=== PATIENT | male | born 1960 | race Caucasian/White ===

== ENCOUNTER → 2017-01-08 | Outpatient (CLI) | payer BC ==
--- NOTE | 2017-01-09 11:50 | RAD ---
Bilateral hands, 6 views, 01/08/2017: History: Polyarthralgias There is mild patchy bony demineralization. No fracture or destructive bony lesion is seen. There are only minimal degenerative changes at scattered interphalangeal joints. No bone erosions are evident. The soft tissues are unremarkable. IMPRESSION: 1. Minimal degenerative change at scattered interphalangeal joints. 2. No acute abnormality is detected.
== END | disposition home or self-care (01) ==
LOC: DXRADRC 13:31
PROVIDERS: ATTEND Internal Medicine Rheumatology
DX: M25.50 Pain in unspecified joint (principal)
CPT/HCPCS: 73130

== ENCOUNTER 2017-02-24 22:52 | Inpatient (IN) | payer BC ==
[~2017-02-24] VITALS: Ht 180.3 cm; Wt 91.7 kg
[2017-02-24] MEDS ORDERED: IV NORMAL SALINE 1,000ML 1,000 ML IV ONE (23:15)
--- NOTE | 2017-02-24 23:21 | PHYS DOC ---
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 Patient admits to having symptoms for greater than a year recently seen by rheumatology and started on Plaquenil and prednisone daily as well as tramadol to treat his symptoms.. Over the last 3-4 days his symptoms gotten progressively worse were now he has increasing pain in his upper extremities described as aching and throbbing worse with movements and position. The aching and throbbing pain is not improved by his medications and that he believes there worsened. He denies any fevers, chills, trauma, travel outside the country, rashes, changes in medications. He denies stopping his prednisone has been tapering off of it. He denies any sick contacts, or focal neurologic deficits. He also denies any chest pain, shortness of breath, nausea, diarrhea, abdominal pain, vomiting, or URI symptoms. Review of Systems Review of Systems Constitutional: Denies fever or chills [] Eyes: Denies change in visual acuity, redness, or eye pain [] HENT: Denies nasal congestion or sore throat [] Respiratory: Denies cough or shortness of breath [] Cardiovascular: No additional information not addressed in HPI [] GI: Denies abdominal pain, nausea, vomiting, bloody stools or diarrhea [] : Denies dysuria or hematuria [] Musculoskeletal: Denies back pain or joint pain [] Integument: Is of localized swelling to each hand bilaterally Neurologic: Planes of generalized weakness and muscle aches. Endocrine: Denies polyuria or polydipsia [] Current Medications Current Medications Current Medications Medications (Trade) Dose Ordered Sig/Tete Start Time Stop Time Status Last Admin Dose Admin Hydromorphone HCl (Dilaudid) 1 mg 1X ONCE 02/24/17 23:15 02/24/17 23:16 UNV Ketorolac Tromethamine (Toradol) 30 mg 1X ONCE 02/24/17 23:15 02/24/17 23:16 UNV Sodium Chloride 1,000 ml @ 1,000 mls/hr 1X ONCE 02/24/17 23:15 02/25/17 00:14 UNV Physical Exam Physical Exam Vital signs demonstrated hypertension, tachycardia without tachypnea or hyperventilation. Sats normal temperature normal Constitutional: Well developed, well nourished, patient obviously uncomfortable but nontoxic HENT: Normocephalic, atraumatic, bilateral external ears normal, oropharynx is dry, no oral exudates, nose normal. [] Eyes: PERRLA, EOMI, conjunctiva normal, no discharge. [] Neck: Normal range of motion, no tenderness, supple, no stridor. [] Cardiovascular: Tachycardia noted Lungs & Thorax: Bilateral breath sounds clear to auscultation [] Abdomen: Bowel sounds normal, soft, no tenderness, no masses, no pulsatile masses. [] Skin: Warm, dry, no erythema, no rash. Noted localized swelling to the dorsum and volar surfaces of both sides of the hand. There is no Janeway's lesions are/ nodes no rashor joint swelling Back: No tenderness, no CVA tenderness. [] Extremities: No tenderness, no cyanosis, no clubbing, is reduced range of motion is reduced secondary to pain, patient does demonstrate some edema in the lower extremity's bilaterally Neurologic: Alert and oriented X 3, normal motor function, normal sensory function, no focal deficits noted. [] Psychologic: Affect normal, judgement normal, mood normal. [] Current Patient Data Vital Signs Vital signs noted mildly tachycardic at 104 hypertensive at 151/98 patient respiratory within normal limits temperatures in the normal limits and sats the normal limits. Lab Results Laboratory Tests Test 02/24/17 23:25 White Blood Count 11.0 x10^3/uL (4.0-11.0) Red Blood Count 4.59 x10^6/uL (4.30-5.70) Hemoglobin 14.4 g/dL (13.0-17.5) Hematocrit 41.4 % (39.0-53.0) Mean Corpuscular Volume 90 fL (79-100) Mean Corpuscular Hemoglobin 31 pg (25-35) Mean Corpuscular Hemoglobin Concent 35 g/dL (31-37) Red Cell Distribution Width 13.5 % (11.5-14.5) Platelet Count 344 x10^3/uL (140-400) Neutrophils (%) (Auto) 80 % (31-73) H Lymphocytes (%) (Auto) 10 % (24-48) L Monocytes (%) (Auto) 9 % (0-9) Eosinophils (%) (Auto) 1 % (0-3) Basophils (%) (Auto) 1 % (0-3) Neutrophils # (Auto) 8.8 x10^3uL (1.8-7.7) H Lymphocytes # (Auto) 1.1 x10^3/uL (1.0-4.8) Monocytes # (Auto) 0.9 x10^3/uL (0.0-1.1) Eosinophils # (Auto) 0.1 x10^3/uL (0.0-0.7) Basophils # (Auto) 0.1 x10^3/uL (0.0-0.2) Erythrocyte Sedimentation Rate Pending Sodium Level 136 mmol/L (136-145) Potassium Level 3.9 mmol/L (3.5-5.1) Chloride Level 100 mmol/L (98-107) Carbon Dioxide Level 28 mmol/L (21-32) Anion Gap 8 (6-14) Blood Urea Nitrogen 15 mg/dL (8-26) Creatinine 1.0 mg/dL (0.7-1.3) Estimated GFR (Cockcroft-Gault) 77.6 BUN/Creatinine Ratio 15 (6-20) Glucose Level 150 mg/dL (70-99) H Calcium Level 9.1 mg/dL (8.5-10.1) Total Bilirubin 0.4 mg/dL (0.2-1.0) Aspartate Amino Transferase (AST) 10 U/L (15-37) L Alanine Aminotransferase (ALT) 16 U/L (16-63) Alkaline Phosphatase 91 U/L (46-116) Creatine Kinase 20 U/L (39-308) L C-Reactive Protein 143.7 mg/L (0-3.3) H Total Protein 8.3 g/dL (6.4-8.2) H Albumin 3.0 g/dL (3.4-5.0) L Albumin/Globulin Ratio 0.6 (1.0-1.7) L EKG EKG [] Radiology/Procedures Radiology/Procedures [] Course & Med Decision Making Course & Med Decision Making Pertinent Labs and Imaging studies reviewed. (See chart for details) [] My initial concern upon presentation is the patient may be suffering from side effects based on use of Plaquenil and prednisone. He does demonstrates some evidence of adrenal insufficiency based on history although his tapering dose is only 10 mg which is unlikely precipitate Santiago's disease or adrenal crisis. The Plaquenil could be also causing his symptoms as it can according to his labile cause myopathy neuropathy and pain. I will continue evaluation of this patient to ensure that there is no evidence of rhabdomyolysis significant dehydration or renal insufficiency causing fluid retention causing localized pain. This does not present as septic joints bilaterally there is no history of sexually transmitted diseases or rashes with these joint pains. Patient's pain mildly improved with IV fluids and Dilaudid and Toradol. Patient is still mildly anxious elevated sedimentation rate and CRP and mildly elevated white blood cell count are indicative of inflammatory process. At this point still don't feel compelled to Any particular peripheral joint given that I do not believe this is an infectious process. Patient unfortunately still a great deal of discomfort. He's been offered a second medication dose and we admitted to the hospital for continued evaluation. Although admitting physician Dr. Devin HEMPHILL at approximately 12:[address] Devin HEMPHILL return phone call at 12:40 am agrees admission will see patient in a.m. Bettie Disclaimer Bettie Disclaimer This chart was dictated in whole or in part using Voice Recognition software in a busy, high-work load, and often noisy Emergency Department environment. It may contain unintended and wholly unrecognized errors or omissions. Departure Departure: Impression: Primary Impression: Intractable pain Additional Impression: Arthritis Disposition: ADMITTED INPATIENT Condition: GUARDED Referrals: TYLER MELGAR (PCP) Problem Qualifiers MAICO CHILDS MD February 24, 2017 23:21
[2017-02-24 23:42] LABS: BASO # 0.1 x10^3/uL (0.0-0.2); BASO % 1 % (0-3); EOS # 0.1 x10^3/uL (0.0-0.7); EOS % 1 % (0-3); HEMATOCRIT 41.4 % (39.0-53.0); HEMOGLOBIN 14.4 g/dL (13.0-17.5); LYMPH # 1.1 x10^3/uL (1.0-4.8); LYMPH % 10 % (24-48); MEAN CORPUSCULAR HEMOGLOBIN 31 pg (25-35); MEAN CORPUSCULAR HGB CONC 35 g/dL (31-37); MEAN CORPUSCULAR VOLUME 90 fL (79-100); MONO # 0.9 x10^3/uL (0.0-1.1); MONO % 9 % (0-9); NEUT # 8.8 x10^3uL (1.8-7.7); NEUT % 80 % (31-73); PLATELET COUNT 344 x10^3/uL (140-400); RED BLOOD COUNT 4.59 x10^6/uL (4.30-5.70); RED CELL DISTRIBUTION WIDTH 13.5 % (11.5-14.5)
[2017-02-24] MEDS ORDERED: KETOROLAC 30 MG/ML VIAL. IV ONE (23:45)
[2017-02-24] MEDS ORDERED: HYDROmorphone PF 1 MG/ML DISP.SYRIN IV ONE (23:45)
[2017-02-24 23:49] LABS: ALBUMIN/GLOBULIN RATIO 0.6 (1.0-1.7); CALCIUM 9.1 mg/dL (8.5-10.1); GFR 77.6; POTASSIUM 3.9 mmol/L (3.5-5.1); TOTAL BILIRUBIN 0.4 mg/dL (0.2-1.0); TOTAL PROTEIN 8.3 g/dL (6.4-8.2)
[2017-02-25] MEDS ORDERED: ONDANSETRON PF 4 MG/2 ML VIAL. IV PRN (00:30)
[2017-02-25] MEDS ORDERED: ACETAMINOPHEN 325 MG TABLET PO PRN (00:30)
[2017-02-25 00:38] LABS: SEDIMENTATION RATE 107 (0-15)
[2017-02-25] MEDS ORDERED: LORazepam 2 MG/ML VIAL IV ONE (01:00)
[2017-02-25] MEDS ORDERED: HYDROmorphone PF 1 MG/ML DISP.SYRIN IV ONE (01:00)
[2017-02-25 01:35] VITALS: BP 151/91
[2017-02-25 01:44] VITALS: BP 128/74
--- NOTE | 2017-02-25 02:09 | ACF ---
Admission Criteria Forms MUSCULOSKELETAL DISEASE [facility] Clinical Indications for Admission to Inpatient Care (Place 'X' for any and all applicable criteria): Hospital admission is needed for appropriate care of the patient because of 1 or more of the following: [ ]I. Fracture, dislocation, or other musculoskeletal injury requiring inpatient care(medical) as indicated by 1 or more of the following(4)(5)(6)(7) [ ]a) Vertebral fracture requiring observation for instability or neurologic compromise (8) [ ]b) Compartment syndrome (proven or cannot be ruled out during observation level of care) (9) [ ]c) Limb-threatening injury [ ]d) Major injury requiring inpatient stabilization such as traction initiation or external fixation before internal fixation or closure of complex or open fracture [ ]e) Major injury requiring inpatient treatment after emergency or observation level care (as appropriate) [ ]f) Severe pain requiring acute inpatient management [ ]g) Injury with suspicion of abuse or neglect (eg., child, dependent elderly) [ ]II. Newly diagnosed or suspected bone, joint, or orthopedic device infection (e.g., osteomyelitis, septic arthritis) needing 1 or more of the following(1)(2)(3) [ ]a) IV antibiotics that cannot be initiated in other than inpatient setting (e.g., patient too unstable or home infusion not available) [ ]b) Device removal or replacement [ ]c) Bone or soft tissue debridement [ ]d) Joint drainage (drain placement or repetitive aspirations) [ ]III. Severe rheumatologic disease (e.g., systemic lupus erythematosus, rheumatoid arthritis) with complications or comorbidities (Also use Optimal Recovery Care Criteria or General Recovery Criteria as appropriate on the basis of predominant condition), including 1 or more of the following( 10)(11)(12)(13) [ ]a) Severe infection (e.g., CAMPUS ADMINISTRATIVE ASSISTANT infection, sepsis) (14) [ ]b) Respiratory complications, including 1 or more of the following : [ ]i) Pleural effusion with respiratory compromise [ ]ii) Pulmonary hypertension with congestive failure [ ]iii) Respiratory failure [ ]iv) Pulmonary hemorrhage (15) [ ]c) Hematologic disease, including 1 or more of the following: [ ]i) Coagulopathy with bleeding [ ]ii) Thrombosis with hypercoagulable state [ ]iii) Thrombotic thrombocytopenic purpura [ ]d) Cerebritis with seizures, psychosis, or other severe abnormalities [ ]e) Vertebral destruction with monitoring needed for cervical myelopathy& possible respiratory compromise [ ]f) Exacerbation that requires inpatient treatment (e.g., intravenous immunosuppression) (16) [ ]g) Acute renal failure [ ]h) Cerebritis with seizures, psychosis, Altered mental status, or other neurologic abnormalities [ ]i) Pericardial effusion with tamponade [ ]j) Vertebral destruction, with monitoring needed for cervical myelopathy and possible respiratory compromise [ ]IV. Severe vasculitis with complications or comorbidities (Also use Optimal Recovery Care Criteria General Recovery Criteria as appropriate on the basis of predominant condition), including 1 or more of the following(11)(12)(17)(18)(19)(20) [ ]a) Exacerbation that requires inpatient treatment (e.g., intravenous immunosuppression) (19)(21) [ ]b) Pulmonary hemorrhage (15) [ ]c) CAMPUS ADMINISTRATIVE ASSISTANT vasculitis with seizures, psychosis, Altered mental status that is severe or persistent, or other severe abnormalities (22) [ ]d) Cerebral infarction [ ]e) Gastrointestinal ischemia [ ]f) Gangrene or threatened amputation [ ]g) Renal failure (16) [ ]h) Other significant complications of vasculitis ( eg., tissue or organ ischemia, organ dysfunction ) [ ]V. Severe myopathy as indicated by 1 or more of the following (28)(29) [ ]a) New onset of airway compromise or inability to swallow [ ]b) Respiratory deterioration with observation needed for impending respiratory failure [ ]c) Exacerbation that requires inpatient treatment (e.g., intravenous immunosuppression) [ ]. Severe crystal gout (arthropathy) indicated by 1 or more of the following (23)(24) [ ]a) Severe pain requiring acute inpatient management [ ]b) Exacerbation that requires inpatient treatment (e.g., intravenous treatment) [ ]VII.Rhabdomyolysis and 1 or more of the following (25)(26)(27) [ ]a) Acute renal failure [ ]b) Need for intravenous hydration after emergency or observation level care (as appropriate) [ ]c) Inability to maintain oral hydration [ ]d) Change in mental status [ ]e) Electrolyte abnormality that remains after emergency or observation level care (as appropriate) [ ]VIII Post amputation complication, as indicated by ANY ONE of the following [ ]a) Infection [ ]b) Dehiscence [ ]c) Myodesis failure [X]IX. Severe pain requiring acute inpatient management due to musculoskeletal condition [ ]X. Musculoskeletal Disease and ALL of the following: [ ]a) Symptom or finding for which emergency and observation care have failed or are not considered appropriate (Use General Criteria: Observation Care as appropriate) [ ]b) Presence of ANY ONE of the following [ ]i) A General Admission Criteria [ ]ii) A Pediatric General Admission Criteria The original [facility] [employer] content created by [facility] has been revised. The portions of the content which have been revised are identified through the use of italic text or in bold, and [facility] has neither reviewed nor approved the modified material. All other unmodified content is copyright [facility]. Please see references footnoted in the original [facility] edition 2016 Admission Criteria Met?: Yes SHANNAN RING February 25, 2017 02:09
[2017-02-25] MEDS: fentaNYL PF 100 MCG/2 ML VIAL IV PRN ×5 (07:30→21:19)
[2017-02-25 07:40] VITALS: BP 130/70
[2017-02-25] MEDS ORDERED: METF500T4 PO (08:09)
[2017-02-25] MEDS ORDERED: CITA40TA12 PO (08:10)
[2017-02-25] MEDS ORDERED: OMEP40CA5 PO (08:10)
[2017-02-25] MEDS ORDERED: ATOR20TA58 PO (08:10)
[2017-02-25] MEDS ORDERED: LEVO50TA5 PO (08:11)
[2017-02-25] MEDS ORDERED: HYDR200T PO (08:11)
[2017-02-25] MEDS ORDERED: PRED-220 PO (08:12)
[2017-02-25] MEDS ORDERED: predniSONE 10 MG TABLET PO SCH (09:00)
[2017-02-25] MEDS ORDERED: LEVOTHYROXINE 50 MCG TABLET PO SCH (09:30)
[2017-02-25] MEDS: HYDROXYCHLOROQUINE 200 MG TABLET PO SCH ×2 (09:52→21:19)
[2017-02-25] MEDS: metFORMIN 500 MG TABLET PO SCH ×2 (09:52→21:19)
[2017-02-25 11:11] VITALS: BP 126/86
[2017-02-25] MEDS: LIDOCAINE (700MG/PATCH) PATCH. TD SCH (14:20)
[2017-02-25] MEDS ORDERED: methylPREDNISolone SOD SUCC PF 40 MG/ML VIAL. IV ONE (14:30)
[2017-02-25] MEDS: ENOXAPARIN 40 MG/0.4 ML DISP.SYRIN. SQ SCH (14:43)
[2017-02-25] MEDS: NAPROXEN 500 MG TABLET PO SCH ×2 (14:44→21:19)
[2017-02-25 15:02] VITALS: BP 140/96
[2017-02-25] MEDS ORDERED: NAPR500T PO (15:48)
--- NOTE | 2017-02-25 19:56 | HP ---
ADMIT DATE: 02/25/2017 HISTORY OF PRESENT ILLNESS: The patient is a 56-year-old male patient who came yesterday to the Emergency Room complaining of pain and generalized aches and throbbing in his upper extremities and hands with localized swelling. He apparently had these symptoms for greater than a year, and about a year ago, he was diagnosed with gout and a few months ago, he was seen by Dr. Florence, director on air and started him on Plaquenil and prednisone daily and as well as tramadol to treat his symptoms. Initially, he was given larger dose of steroids and subsequently, has received three tapering course of steroids and most recently, he is only on 10 mg b.i.d. He is also however, over the last 3-4 days, his symptoms have gotten progressively worse and now, he has increasing pain in his upper extremities as described as aching and throbbing, worse with movement and position, aching and throbbing pain is not improved by his medication that he believes that they have worsened. He denied; however, any fever, chill, trauma, with change in medication. He denied any stopping the prednisone, it had been tapered off of it. He denied any sick contacts. No focal neurologic deficit. He also denied any chest pain, shortness of breath. PAST MEDICAL HISTORY: Significant for type 2 diabetes mellitus, hyperlipidemia, hypothyroidism, he has also obstructive sleep apnea and more recently, was diagnosed with rheumatoid arthritis. PAST SURGICAL HISTORY: Significant for right-sided residual osteomyelitis and septoplasty x 2, colonoscopy, which was screening. ALLERGIES: He has no known drug allergies. MEDICATIONS: He is currently on following medications: He is on atorvastatin, calcium 20 mg once a day, citalopram hydrobromide 40 mg once a day, hydroxychloroquine sulfate 200 mg once a day, levothyroxine sodium 50 mcg daily, metformin 500 mg twice a day, omeprazole 40 mg once a day, and prednisone 10 mg once a day. FAMILY HISTORY: He has one brother who is younger and healthy. One sister, older at 62. His father at the age of 62 because of alcoholism. His mother is still alive at the age of 87 and healthy. SOCIAL HISTORY: He is . He smokes about a pack a day. He drinks alcohol occasionally. 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 REVIEW OF SYSTEMS: The patient denied any blurring of vision, cataract, glaucoma or macular degeneration. Denied any earache, tinnitus or sensorineural deafness. Denied any nosebleeds, stuffy nose or postnasal drip. Denied any sore throat, sore tongue, toothache, hoarseness of voice or difficulty swallowing. Denied any nausea, vomiting, diarrhea or constipation. Denied any hematemesis, melena or hematochezia. Denied any dysuria, frequency or hematuria. Denied any chills, rigors or fever. Denied any chest pain, shortness of breath, orthopnea, paroxysmal nocturnal dyspnea. Denied any cough, phlegm or hemoptysis. PHYSICAL EXAMINATION: GENERAL: When I examined him this afternoon, he was resting slightly propped up in bed, in no apparent respiratory distress. No pallor, jaundice, cyanosis or thyromegaly. No jugular venous distention. No lower limb edema. VITAL SIGNS: His heart rate was 94, blood pressure was 126/86, temperature was 98.7, respiratory rate 20, and oxygen saturation was 95% on room air. HEAD, EYES, EARS, NOSE, AND THROAT: Showed normocephalic, atraumatic. NECK: Supple. HEART: Showed normal first and second heart sounds with no gallop, rub or murmur. CHEST: Clear to auscultation. No crepitation or rhonchi. ABDOMEN: Distended, soft, and nontender. No guarding or rigidity. No organomegaly. Hernial orifices intact. Bowel sounds normal. NEUROLOGIC: He was awake, alert, responding appropriately. Cranial nerves intact. EXTREMITIES: He moves extremities without difficulty, although he has pain mostly in the right shoulder and right wrist joint and the right hand more swollen than the left one. 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 LABORATORY DATA: Showed a white cell count of 11,000, hemoglobin 14.4, hematocrit 41, MCV 90, and platelet count of 344,000, with a manual differential showed 80% polymorphs, 10% lymphocytes, and 9% monocytes. His serum sodium was 136, potassium 3.9, chloride 100, bicarbonate 28, anion gap of 8, BUN 15, creatinine 1, estimated GFR was 77 mL per minute, his glucose 150. Calcium was 9.1. Total bilirubin, AST, ALT, alkaline phosphatase were normal. His CK was only 20, total protein was 8.3, albumin 3, and C-reactive protein was 143.7 mg/dL. His sedimentation rate was 107 mm per hour. ASSESSMENT AND PLAN: This is a 56-year-old male patient who came in with flareup of his rheumatoid arthritis. My plan is to give him an intravenous dose of Solu-Medrol at 40 mg and start him also on naproxen 500 mg 3 times a day with food, had also Lidoderm patch to his right shoulder and right wrist and continue with all other medication and decide on further management accordingly. I contacted Dr. Florence by phone and also texted him, at least he has not responded by the time I dictated this H and P. AGNIESZKA COWART MD DR: BAHMAN/jodee JOB#: [id number] / [id number]
[2017-02-25] MEDS: ATORVASTATIN CALCIUM 20 MG TABLET PO SCH (21:19)
[2017-02-25 21:32] VITALS: BP 138/81
[2017-02-26 00:45] VITALS: BP 140/90
[2017-02-26] MEDS: fentaNYL PF 100 MCG/2 ML VIAL IV PRN ×3 (00:57→07:29)
[2017-02-26] MEDS: LEVOTHYROXINE 50 MCG TABLET PO SCH (05:49)
[2017-02-26 05:52] VITALS: BP 120/86
[2017-02-26 06:32] LABS: BASO # 0.1 x10^3/uL (0.0-0.2); BASO % 1 % (0-3); EOS % 0 % (0-3); HEMATOCRIT 39.8 % (39.0-53.0); HEMOGLOBIN 13.9 g/dL (13.0-17.5); LYMPH # 1.4 x10^3/uL (1.0-4.8); LYMPH % 13 % (24-48); MEAN CORPUSCULAR HEMOGLOBIN 32 pg (25-35); MEAN CORPUSCULAR HGB CONC 35 g/dL (31-37); MEAN CORPUSCULAR VOLUME 91 fL (79-100); MONO # 0.8 x10^3/uL (0.0-1.1); MONO % 8 % (0-9); NEUT # 8.5 x10^3uL (1.8-7.7); NEUT % 79 % (31-73); PLATELET COUNT 371 x10^3/uL (140-400); RED CELL DISTRIBUTION WIDTH 13.7 % (11.5-14.5); WHITE BLOOD COUNT 10.8 x10^3/uL (4.0-11.0)
[2017-02-26 06:52] LABS: ALBUMIN 2.8 g/dL (3.4-5.0); ALBUMIN/GLOBULIN RATIO 0.5 (1.0-1.7); CREATININE 0.9 mg/dL (0.7-1.3); GFR 87.6; TOTAL BILIRUBIN 0.4 mg/dL (0.2-1.0)
[2017-02-26] MEDS: metFORMIN 500 MG TABLET PO SCH ×2 (07:28→21:03)
[2017-02-26] MEDS: LIDOCAINE (700MG/PATCH) PATCH. TD SCH (07:28)
[2017-02-26] MEDS ORDERED: PANTOPRAZOLE 40 MG TABLET. PO SCH (07:30)
[2017-02-26] MEDS: NAPROXEN 500 MG TABLET PO SCH ×3 (08:15→15:38)
[2017-02-26] MEDS: HYDROXYCHLOROQUINE 200 MG TABLET PO SCH ×2 (08:15→21:04)
[2017-02-26] MEDS: CITALOPRAM 20 MG TABLET. PO SCH (08:16)
[2017-02-26] MEDS ORDERED: predniSONE 10 MG TABLET PO SCH (09:00)
[2017-02-26 11:03] VITALS: BP 141/79
--- NOTE | 2017-02-26 11:37 | PDOC ---
PROGRESS NOTES Diagnosis Problem Problems Medical Problems: (1) Arthritis Status: Acute (2) Intractable pain Status: Acute Assessment 1. Severe RA flare, acute: Pt on high-dose IV corticosteroids and naproxen per Dr. Florence (who Dr. York says he spoke to yesterday). Pt recently started on Plaquenil as well. I am going to get xrays of his shoulders to see if there has been significant joint destruction that might explain his significant ROM loss. Pt reports he has had labs positive for RA. CRP is definitely suggestive as well. 2. DM: Sugars worsening on steroids, give SSI per protocol. 3. Joint pain: Pt receiving PRN IV Fentanyl. Does not want to take tramadol as he is afraid it may have led to his worsening symptoms. 4. GI proph: PPI, consider carafate at d/c if pt to be on both prednisone and naproxen. 5. DVT proph: SCD's. Would like to avoid blood thinners due to pt's large doses of anti-inflammatories. 6. Disp: Pt is slightly improved but not sure he can go home without being able to use his arms. We may consider another 24 hours on IV steroids. Problems: Plan of Care: see other orders Subjective Pt seen on rounds this morning. States he is a little better, but still can't lift either arm up to touch his head. Pain has been fairly severe at times, requiring doses of IV Fentanyl last night. Denies fevers, abdominal pain, dark or tarry stools, cough, SOA, chest pain, or leg swelling. States that he took tramadol for a couple days last week and that's when he seemed to be getting worse w/ his shoulder pain, so he stopped taking it. Only recently diagnosed w / RA, has seen Dr. Florence twice. Objective Vital Signs Date Time Temp Pulse Resp B/P (MAP) Pulse Ox O2 Delivery O2 Flow Rate FiO2 02/26/17 11:03 98.1 87 20 141/79 (99) 95 Room Air Intake and Output 02/26/17 07:00 Intake Total 1740 ml Output Total 1725 ml Balance 15 ml Intake Oral 1740 ml Output Urine Total 1725 ml # Voids 2 Abdomen: Soft, No tenderness, No hepatospenomegaly, No masses Heart: Regular rate, Normal S1, Normal S2, No murmurs Extremities: No edema, Normal pulses, Other (Bette's negative bilaterally; ROM severely limited in bilateral shoulder joints w/ significant crepitus and some minor effusions bilaterally. Clinical Team Lead strength is normal and equal. ) General: Alert, Oriented X3, Cooperative, No acute distress HEENT: PERRLA, EOMI, Mucous membr. moist/pink Lungs: Clear to auscultation, Normal air movement Neck: No JVD, No LAD Neuro: Normal speech, Normal tone, Sensation intact, Cranial nerves 3-12 NL Psych/Mental Status: Mental status NL, Mood NL Skin: No rashes, No breakdown Review of Relevant I have reviewed the following items yasmine (where applicable) has been applied. Labs Laboratory Tests Test 02/24/17 23:25 02/25/17 03:00 02/25/17 07:32 02/25/17 11:52 White Blood Count 11.0 x10^3/uL (4.0-11.0) Red Blood Count 4.59 x10^6/uL (4.30-5.70) Hemoglobin 14.4 g/dL (13.0-17.5) Hematocrit 41.4 % (39.0-53.0) Mean Corpuscular Volume 90 fL (79-100) Mean Corpuscular Hemoglobin 31 pg (25-35) Mean Corpuscular Hemoglobin Concent 35 g/dL (31-37) Red Cell Distribution Width 13.5 % (11.5-14.5) Platelet Count 344 x10^3/uL (140-400) Neutrophils (%) (Auto) 80 % (31-73) Lymphocytes (%) (Auto) 10 % (24-48) Monocytes (%) (Auto) 9 % (0-9) Eosinophils (%) (Auto) 1 % (0-3) Basophils (%) (Auto) 1 % (0-3) Neutrophils # (Auto) 8.8 x10^3uL (1.8-7.7) Lymphocytes # (Auto) 1.1 x10^3/uL (1.0-4.8) Monocytes # (Auto) 0.9 x10^3/uL (0.0-1.1) Eosinophils # (Auto) 0.1 x10^3/uL (0.0-0.7) Basophils # (Auto) 0.1 x10^3/uL (0.0-0.2) Erythrocyte Sedimentation Rate 107 (0-15) Sodium Level 136 mmol/L (136-145) Potassium Level 3.9 mmol/L (3.5-5.1) Chloride Level 100 mmol/L (98-107) Carbon Dioxide Level 28 mmol/L (21-32) Anion Gap 8 (6-14) Blood Urea Nitrogen 15 mg/dL (8-26) Creatinine 1.0 mg/dL (0.7-1.3) Estimated GFR (Cockcroft-Gault) 77.6 BUN/Creatinine Ratio 15 (6-20) Glucose Level 150 mg/dL (70-99) Calcium Level 9.1 mg/dL (8.5-10.1) Total Bilirubin 0.4 mg/dL (0.2-1.0) Aspartate Amino Transf (AST/SGOT) 10 U/L (15-37) Alanine Aminotransferase (ALT/SGPT) 16 U/L (16-63) Alkaline Phosphatase 91 U/L (46-116) Creatine Kinase 20 U/L (39-308) C-Reactive Protein 143.7 mg/L (0-3.3) Total Protein 8.3 g/dL (6.4-8.2) Albumin 3.0 g/dL (3.4-5.0) Albumin/Globulin Ratio 0.6 (1.0-1.7) Nasal Screen MRSA (PCR) Positive (Negative) Glucose (Fingerstick) 147 mg/dL (70-99) 176 mg/dL (70-99) Test 02/26/17 05:44 02/26/17 07:26 White Blood Count 10.8 x10^3/uL (4.0-11.0) Red Blood Count 4.40 x10^6/uL (4.30-5.70) Hemoglobin 13.9 g/dL (13.0-17.5) Hematocrit 39.8 % (39.0-53.0) Mean Corpuscular Volume 91 fL (79-100) Mean Corpuscular Hemoglobin 32 pg (25-35) Mean Corpuscular Hemoglobin Concent 35 g/dL (31-37) Red Cell Distribution Width 13.7 % (11.5-14.5) Platelet Count 371 x10^3/uL (140-400) Neutrophils (%) (Auto) 79 % (31-73) Lymphocytes (%) (Auto) 13 % (24-48) Monocytes (%) (Auto) 8 % (0-9) Eosinophils (%) (Auto) 0 % (0-3) Basophils (%) (Auto) 1 % (0-3) Neutrophils # (Auto) 8.5 x10^3uL (1.8-7.7) Lymphocytes # (Auto) 1.4 x10^3/uL (1.0-4.8) Monocytes # (Auto) 0.8 x10^3/uL (0.0-1.1) Eosinophils # (Auto) 0.0 x10^3/uL (0.0-0.7) Basophils # (Auto) 0.1 x10^3/uL (0.0-0.2) Sodium Level 136 mmol/L (136-145) Potassium Level 4.0 mmol/L (3.5-5.1) Chloride Level 100 mmol/L (98-107) Carbon Dioxide Level 27 mmol/L (21-32) Anion Gap 9 (6-14) Blood Urea Nitrogen 20 mg/dL (8-26) Creatinine 0.9 mg/dL (0.7-1.3) Estimated GFR (Cockcroft-Gault) 87.6 BUN/Creatinine Ratio 22 (6-20) Glucose Level 209 mg/dL (70-99) Calcium Level 9.0 mg/dL (8.5-10.1) Total Bilirubin 0.4 mg/dL (0.2-1.0) Aspartate Amino Transf (AST/SGOT) 9 U/L (15-37) Alanine Aminotransferase (ALT/SGPT) 14 U/L (16-63) Alkaline Phosphatase 85 U/L (46-116) Total Protein 8.0 g/dL (6.4-8.2) Albumin 2.8 g/dL (3.4-5.0) Albumin/Globulin Ratio 0.5 (1.0-1.7) Glucose (Fingerstick) 195 mg/dL (70-99) Medications Current Medications Hydromorphone HCl (Dilaudid) 1 mg 1X ONCE IV Last administered on 02/24/17t 23 :38; Start 02/24/17 at 23:45; Stop 02/24/17 at 23:46; Status DC Ketorolac Tromethamine (Toradol) 30 mg 1X ONCE IV Last administered on 23:39; Start 02/24/17 at 23:45; Stop 02/24/17 at 23:46; Status DC Sodium Chloride 1,000 ml @ 1,000 mls/hr 1X ONCE IV Last administered on 23:15; Start 02/24/17 at 23:15; Stop 02/25/17 at 00:14; Status DC Lorazepam (Ativan) 1 mg 1X ONCE IV Last administered on 02/25/17 00:30; Start 02/25/17 at 01:00; Stop 02/25/17 at 01:02; Status DC Hydromorphone HCl (Dilaudid) 1 mg 1X ONCE IV Last administered on 02/25/17 00 :30; Start 02/25/17 at 01:00; Stop 02/25/17 at 01:02; Status DC Ondansetron HCl (Zofran) 4 mg PRN Q4HRS PRN IV NAUSEA/VOMITING; Start 02/25/17 at 00:30; Stop 02/26/17 at 00:29; Status DC Fentanyl Citrate (Fentanyl 2ml Vial) 50 mcg PRN Q1HR PRN IV SEVERE PAIN Last administered on 02/25/17 21:19; Start 02/25/17 at 00:30; Stop 02/26/17 at 00:29 ; Status DC Acetaminophen (Tylenol) 650 mg PRN Q4HRS PRN PO FEVER; Start 02/25/17 at 00:30 ; Stop 02/26/17 at 00:29; Status DC Atorvastatin Calcium (Lipitor) 20 mg QHS PO Last administered on 02/25/17 21: 19; Start 02/25/17 at 21:00 Hydroxychloroquine Sulfate (Plaquenil) 200 mg BID PO Last administered on 08:15; Start 02/25/17 at 09:00 Levothyroxine Sodium (Synthroid) 50 mcg DAILY07 PO ; Start 02/25/17 at 09:30; Stop 02/25/17 at 09:30; Status DC Metformin HCl (Glucophage) 500 mg BID PO Last administered on 02/26/17 07:28; Start 02/25/17 at 09:00 Prednisone (Prednisone) 10 mg DAILY PO Last administered on 02/25/17 09:52; Start 02/25/17 at 09:00; Stop 02/25/17 at 14:36; Status DC Citalopram Hydrobromide (CeleXA) 40 mg DAILY PO Last administered on 02/26/17 08:16; Start 02/26/17 at 09:00 Pantoprazole Sodium (Protonix) 40 mg DAILYAC PO Last administered on 02/26/17 07:28; Start 02/26/17 at 07:30 Levothyroxine Sodium (Synthroid) 50 mcg DAILY06 PO Last administered on 05:49; Start 02/26/17 at 06:00 Methylprednisolone Sodium Succinate (SOLU-Medrol 40MG VIAL) 40 mg 1X ONCE IV Last administered on 02/25/17 14:20; Start 02/25/17 at 14:30; Stop 02/25/17 at 14:31; Status DC Lidocaine (Lidoderm) 2 patch DAILY TD Last administered on 02/26/17 07:28; Start 02/25/17 at 14:30 Naproxen (Naprosyn) 500 mg TID PO Last administered on 02/26/17 08:15; Start 02/25/17 at 14:45 Enoxaparin Sodium (Lovenox) 40 mg Q24H SQ Last administered on 02/25/17 14:43 ; Start 02/25/17 at 14:30 Prednisone (Prednisone) 30 mg DAILY PO Last administered on 02/26/17 08:15; Start 02/26/17 at 09:00 Fentanyl Citrate (Fentanyl 2ml Vial) 50 mcg PRN Q2HR PRN IV SEVERE PAIN Last administered on 02/26/17 07:29; Start 02/26/17 at 01:00 Active Scripts Active Reported Naprosyn (Naproxen) 500 Mg Tablet 1 Tab PO BID Prednisone 10 Mg Tablet 10 Mg PO DAILY Plaquenil (Hydroxychloroquine Sulfate) 200 Mg Tablet 200 Mg PO Levothyroxine Sodium 50 Mcg Tablet 1 Tab PO DAILY Atorvastatin Calcium 20 Mg Tablet 1 Tab PO DAILY Celexa (Citalopram Hydrobromide) 40 Mg Tablet 40 Mg PO DAILY Omeprazole 40 Mg Capsule.dr 1 Cap PO DAILY Metformin Hcl 500 Mg Tablet 1 Tab PO BID Vitals/I & O Vital Sign - Last 24 Hours 02/25/17 02/25/17 02/25/17 02/25/17 14:44 15:02 15:14 19:27 Temp 98.9 Pulse 20 Resp 20 16 17 B/P (MAP) 140/96 (111) Pulse Ox 96 95 93 O2 Delivery Room Air Room Air Room Air 02/25/17 02/25/17 02/25/17 02/25/17 20:00 21:19 21:32 21:49 Pulse 106 Resp 21 B/P (MAP) 138/81 (100) Pulse Ox 93 95 95 O2 Delivery Room Air Room Air Room Air Room Air 02/26/17 02/26/17 02/26/17 02/26/17 00:45 00:57 05:50 05:52 Temp 98.4 98.1 Pulse 93 89 Resp 25 20 B/P (MAP) 140/90 (107) 120/86 (97) Pulse Ox 96 96 97 O2 Delivery Room Air Room Air Room Air Room Air 02/26/17 02/26/17 02/26/17 02/26/17 06:20 07:39 07:59 11:03 Temp 98.1 Pulse 87 Resp 20 B/P (MAP) 141/79 (99) Pulse Ox 97 95 O2 Delivery Room Air Room Air Room Air Intake and Output 02/25/17 02/25/17 02/26/17 15:00 23:00 07:00 Intake Total 1140 ml 180 ml 420 ml Output Total 1075 ml 650 ml Balance 65 ml -470 ml 420 ml SONYA COSTELLO MD February 26, 2017 11:37
[2017-02-26] MEDS ORDERED: DEXTROSE 50% 25 GM / 50ML DISP.SYRIN. IV PRN (11:45)
[2017-02-26] MEDS: methylPREDNISolone SOD SUCC PF 125 MG/2 ML VIAL. IV SCH ×2 (12:04→21:03)
--- NOTE | 2017-02-26 12:12 | RAD ---
Bilateral shoulders 3 views each. History: Shoulder pain decreased range of motion Right shoulder 3 views were taken of the right shoulder. There is no fracture or dislocation or acute osseous abnormality. Left shoulder 3 views the left shoulder show no evidence of an acute fracture or dislocation or osseous abnormality. Impression: 1. Negative bilateral shoulders.
[2017-02-26] MEDS: NICOTINE 21MG PATCH. TD SCH (12:22)
[2017-02-26] MEDS: MUPIROCIN 2% TOPICAL OINTMENT 22GM TUBE. TP SCH (12:25)
[2017-02-26] MEDS: HYDROcodone/APAP 7.5/325MG 1 TAB TABLET PO PRN ×2 (14:38→19:32)
[2017-02-26 15:55] VITALS: BP 145/86
[2017-02-26] MEDS: ENOXAPARIN 40 MG/0.4 ML DISP.SYRIN. SQ SCH (17:04)
[2017-02-26] MEDS: INSULIN ASPART 300 UNITS/3 ML INSULN.PEN SQ SCH ×3 (17:05→23:37)
[2017-02-26 18:21] VITALS: BP 126/85
[2017-02-26] MEDS ORDERED: fentaNYL PF 100 MCG/2 ML VIAL IV PRN ×2 (19:30)
[2017-02-26] MEDS: PANTOPRAZOLE 40 MG TABLET. PO SCH (21:03)
[2017-02-26] MEDS: ATORVASTATIN CALCIUM 20 MG TABLET PO SCH (21:03)
[2017-02-27] MEDS: HYDROcodone/APAP 7.5/325MG 1 TAB TABLET PO PRN ×2 (01:52→08:15)
[2017-02-27 06:00] VITALS: BP 125/80
[2017-02-27] MEDS: LEVOTHYROXINE 50 MCG TABLET PO SCH (06:40)
[2017-02-27] MEDS ORDERED: INSULIN ASPART 300 UNITS/3 ML INSULN.PEN SQ SCH (07:30)
[2017-02-27] MEDS: HYDROXYCHLOROQUINE 200 MG TABLET PO SCH (08:15)
[2017-02-27] MEDS: metFORMIN 500 MG TABLET PO SCH (08:15)
[2017-02-27] MEDS: LIDOCAINE (700MG/PATCH) PATCH. TD SCH (08:16)
[2017-02-27] MEDS: NAPROXEN 500 MG TABLET PO SCH (08:16)
[2017-02-27] MEDS: NICOTINE 21MG PATCH. TD SCH (08:16)
[2017-02-27] MEDS: PANTOPRAZOLE 40 MG TABLET. PO SCH (08:16)
[2017-02-27] MEDS: CITALOPRAM 20 MG TABLET. PO SCH (08:16)
[2017-02-27] MEDS: MUPIROCIN 2% TOPICAL OINTMENT 22GM TUBE. TP SCH (08:17)
[2017-02-27] MEDS: methylPREDNISolone SOD SUCC PF 125 MG/2 ML VIAL. IV SCH (08:17)
[2017-02-27] MEDS ORDERED: SUCR1TAB35 PO (09:19)
[2017-02-27] MEDS ORDERED: HYDR-2762 PO (09:19)
[2017-02-27] MEDS ORDERED: PRED-220 PO (09:19)
--- NOTE | 2017-02-27 11:51 | DS ---
DATE OF DISCHARGE: 02/25/2017 DISCHARGE DIAGNOSES: 1. Severe rheumatoid arthritis flare markedly improved. 2. Diabetes with hyperglycemia secondary to steroids. 3. Pain management. 4. Gastrointestinal prophylaxis. 5. Deep venous thrombosis prophylaxis. 6. Moderate protein malnutrition. 7. Nasal screen methicillin-resistant staphylococcus aureus positive. HOSPITAL COURSE: A 56-year-old male with a recent diagnosis of rheumatoid arthritis who presented to the Emergency Room, unable to move or lift his arms over his head. Extreme pain. He was found to have a sed rate of 107 as well as C-reactive protein of 143.7. 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 His condition improved significantly and he was ready for discharge. OBJECTIVE: VITAL SIGNS: Blood pressure 125/80, pulse 77, respirations 20, temperature 97.6, and pulse ox 96% on room air. GENERAL: The patient is alert and oriented. Calm and cooperative. HEENT: His tongue was moist. NECK: Supple. LUNGS: Clear. CARDIOVASCULAR: Regular rhythm and rate. ABDOMEN: Soft and nontender. EXTREMITIES: Without edema. MUSCULOSKELETAL: He is able to move both of his arms over his head. He has minimal tenderness of his hands. Moving everything much better. Opening and closing of the hands and feet okay. LABORATORY DATA: No new labs checked for today. DISPOSITION: To home. Type written instructions given. Follow up with his heating and ventilating worker. He will monitor his blood sugars. He has a daughter who is a nurse practitioner. Keep appointment with his heating and ventilating worker. ELIDA DE LUNA DO DR: STACEY/jodee JOB#: [id number] / [id number]
== END 2017-02-27 09:45 | disposition home or self-care (01) | DRG 546 ==
LOC: ER 22:52 → ICU 02-25 00:31 → OBSVTOIN 02-25 01:16
PROVIDERS: ADMIT Internal Medicine; ATTEND Internal Medicine
DX: M06.9 Rheumatoid arthritis, unspecified (principal); E44.0 Moderate protein-calorie malnutrition; F17.210 Nicotine dependence, cigarettes, uncomplicated; M10.9 Gout, unspecified; E03.9 Hypothyroidism, unspecified; E78.5 Hyperlipidemia, unspecified; G47.33 Obstructive sleep apnea (adult) (pediatric); E11.65 Type 2 diabetes mellitus with hyperglycemia; T38.0X5A Adverse effect of glucocorticoids and synthetic analogues, initial encounter; Z88.8 Allergy status to other drugs, medicaments and biological substances; Y92.89 Other specified places as the place of occurrence of the external cause; Z68.28 Body mass index [BMI] 28.0-28.9, adult; Z22.322 Carrier or suspected carrier of Methicillin resistant Staphylococcus aureus
CPT/HCPCS: 36415; 73030; 80053; 82550; 82947; 85027; 85651; 86140; 87641; 96361; 96374; 96375; 96376; G0379; J1170; J1650; J1815; J1885; J2060; J2920; J2930; J3010; J7512; 99285-25; J7030

== ENCOUNTER → 2018-09-16 | Outpatient (CLI) | payer BC ==
[~2018-09-16] MED LIST: ATOR20TA58 PO; CITA40TA12 PO; HYDR-2765 PO; HYDR200T71 PO; LEVO50TA5 PO; METF500T16 PO; NAPR-683 PO; OMEP40CA5 PO; PRED-220 PO; SUCR1TAB35 PO
--- NOTE | 2018-09-16 16:40 | RAD ---
3 views of the cervical spine without comparison for radiculopathy and neck pain since July. FINDINGS: There is straightening of the normal cervical lordosis. Moderate to severe degenerative disc disease is seen at C5-6 and C6-7, with bulky anterior and smaller posterior osteophytes at both levels as well. Minimal facet arthrosis is seen at multiple levels. The pharyngeal prevertebral soft tissues are thickened at 18 mm. No foreign bodies or air identified, however pathology cannot be excluded with conventional radiographs. Clinical correlation is recommended with consideration for contrast-enhanced CT of the neck or MRI of the neck. The atlantoaxial articulation is intact. IMPRESSION: 1. No fracture or acute osseous or alignment abnormality of the cervical spine. 2. Moderate to severe degenerative disc disease involving C5-6 and C6-7. 3. Widening of the prevertebral soft tissues in the pharyngeal distribution, without definite discernible etiology. Finding may be spurious but could also represent underlying neoplasm other soft tissue process. Clinical correlation is recommended with consideration for further evaluation with direct visualization or contrast enhanced CT scan of the neck or MRI of the neck. Electronically signed by: Lewis Shah MD (09/16/2018 4:35 PM) [facility]
== END | disposition home or self-care (01) ==
LOC: PMG 11:08
PROVIDERS: ATTEND Physician Assistant Medical
DX: M50.123 Cervical disc disorder at C6-C7 level with radiculopathy (principal); M25.78 Osteophyte, vertebrae
CPT/HCPCS: 72040

== ENCOUNTER 2021-12-11 01:59 | Emergency (ER) | payer MEDICARE, BC ==
[~2021-12-11] VITALS: Ht 177.8 cm; Wt 100.5 kg
[~2021-12-11 01:59] MED LIST changes: -OMEP40CA5 PO; +OMEP40CA7 PO
--- NOTE | 2021-12-11 03:05 | PHYS DOC ---
Past History Past Medical History: Arthritis, Diabetes Additional Past Medical Histor: rheumatoid arthritis Past Surgical History: No Surgical History Smoking: Cigarettes, Greater than 1 pack/day Alcohol Use: Occasionally Drug Use: None General Adult HPI: HPI: ".. My was diagnosed with COVID on .. ..and now I ve got it.. ".,. " I more short of breath.. coughing but nothing come s up ... 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 it seem s to be worse tonight... ".. " I ve been sick since or Sunday... .. Patient is a 61 year old male who presents with above hx and complaints of dyspnea. Pt. hs past medical hx of diabetes, rheumatoid arthritis, osteomyelitis, hyperlipidemia, hypothyroidism, sleep apnea,GERD, obstructive sleep apnea,. The patient does smoke tobacco. Pt . follows with [facility] for care. Pt. diagnosis of COVID on . Pt. has had COVID vaccination and Flu vaccination. p Review of Systems: Review of Systems: Constitutional: Denies fever or chills Eyes: Denies change in visual acuity HENT: Denies nasal congestion or sore throat Respiratory: Planes of nonproductive cough and shortness of breath Cardiovascular: Denies chest pain or edema GI: Denies abdominal pain, nausea, vomiting, bloody stools or diarrhea : Denies dysuria Musculoskeletal: Denies back pain or joint pain Integument: Denies rash Neurologic: Denies headache, focal weakness or sensory changes Endocrine: Denies polyuria or polydipsia Lymphatic: Denies swollen glands Psychiatric: Denies depression or anxiety Family History: Family History: 1 brother who is younger and healthy, 1 sister the older age 62. Father because of alcoholism age 62.. has COVID. Current Medications: Current Meds: See nursing for home meds Allergies: Allergies: Allergies Coded Allergies Type Severity Reaction Last Updated Verified I S O L A T I O N *CONTACT* Allergy Unknown 02/27/17 Yes NKMA Allergy Unknown 02/27/17 Yes Physical Exam: PE: Constitutional:moderate acute distress, non-toxic appearance. [] HENT: Normocephalic, atraumatic, bilateral external ears normal, oropharynx moist, no oral exudates, nose swollen turbinates clear rhinorrhea Eyes: PERRLA, EOMI, conjunctiva normal, no discharge. [] Neck: Normal range of motion, no tenderness, supple, no stridor. [] Cardiovascular: Tachycardia heart rate regular rhythm, no murmur [] Lungs & Thorax: Bilateral breath sounds equal apex scattered wheezes auscultation [] Abdomen: Bowel sounds normal, soft, no tenderness, no masses, no pulsatile masses. [] Skin: Warm, dry, no erythema, no rash. Poor turgor Back: No tenderness, no CVA tenderness. [] Extremities: No tenderness, no cyanosis, no clubbing, ROM intact, no edema. No cording appreciated. Arthritic changes. Neurologic: Alert and oriented X 3, normal motor function, normal sensory function, no focal deficits noted. [] Psychologic: Affect normal, judgement normal, mood normal. [] EKG: EKG: My interpretation EKG shows a sinus rhythm at 87 bpm. There is some nonspecific E RIST contour changes. Anterior lateral leads. No findings of acute STEMI or contralateral changes. Does have slightly prolonged QT interval at 422 ms and QTC at 508 ms. Time of EKG is 330 hours [] Radiology/Procedures: Radiology/Procedures: [] Heart Score: C/O Chest Pain: N/A HEART Score for Chest Pain: HEART Score for Chest Pain Response (Comments) Value History Moderately Suspicious 1 ECG Nonspecific Repolarizatio 1 Age >45 - < 65 1 Risk Factors 1 or 2 Risk Factors 1 Troponin < Normal Limit 0 Total 4 Risk Factors: Risk Factors: DM, Current or recent (<one month) smoker, HTN, HLP, family history of CAD, obesity. Risk Scores: Score 0 - 3: 2.5% MACE over next 6 weeks - Discharge Home Score 4 - 6: 20.3% MACE over next 6 weeks - Admit for Clinical Observation Score 7 - 10: 72.7% MACE over next 6 weeks - Early Invasive Strategies Course & Med Decision Making: Course & Med Decision Making Pertinent Labs and Imaging studies reviewed. (See chart for details) Use MDI two puffs four times a day. Tylenol and Ibuprofen for discomfort and fever. Stop smokilng. Self isolate. Monitor home sats. Return for any concerns. Impression: 1. COVID Infection 2. Influenza A infection 3. Diabetes Glucose = 427- 283 recheck 4 Rheumatoid arthritis [] Dragon Disclaimer: Dragon Disclaimer: This electronic medical record was generated, in whole or in part, using a voice recognition dictation system. Departure Departure: Referrals: TYLER MELGAR (PCP) Scripts Azithromycin (ZITHROMAX) 250 Mg Tablet 250 MG PO DAILY for ANTI-BIOTIC for 5 Days, #5 TAB 0 Refills Prov: DEAN SAUCEDA MD 12/11/21 Bettie Disclaimer This chart was dictated in whole or in part using Voice Recognition software in a busy, high-work load, and often noisy Emergency Department environment. It may contain unintended and wholly unrecognized errors or omissions. DEAN SAUCEDA MD Dec 11, 2021 03:05
[2021-12-11] MEDS ORDERED: [UNRECOGNIZED DRUG - CODE] SQ (03:15)
[2021-12-11] MEDS ORDERED: long acting insulin SUBCUT (03:15)
[2021-12-11] MEDS ORDERED: ALBUTEROL SULFATE 8GM INHALER. INH ONE (03:15)
[2021-12-11] MEDS ORDERED: CONTRAST GIVEN. MC PRN (03:30)
[2021-12-11] MEDS: IV RINGERS SOLUTION,LACTATED 1,000 ML IV SCH (03:58)
[2021-12-11] MEDS: INSULIN REGULAR 100 UNIT/ML 3ML VIAL. IV ONE (04:00)
--- NOTE | 2021-12-11 04:04 | RAD ---
AP chest x-ray HISTORY: Dyspnea. FINDINGS: Heart size normal. Mediastinal silhouette is normal. No pneumothorax, pulmonary opacities o r pleural effusions. Bones are unremarkable. IMPRESSION: No acute process. Electronically signed by: Randall Venegas MD (12/11/2021 4:02 AM) [facility]
[2021-12-11] MEDS: ALBUTEROL SULFATE 8GM INHALER. INH ONE (04:11)
[2021-12-11 04:20] LABS: BASO % 1 % (0-3); EOS # 0.1 x10^3/uL (0.0-0.7); EOS % 3 % (0-3); HEMATOCRIT 46.4 % (39.0-53.0); HEMOGLOBIN 16.5 g/dL (13.0-17.5); LYMPH # 1.1 x10^3/uL (1.0-4.8); LYMPH % 24 % (24-48); MEAN CORPUSCULAR HEMOGLOBIN 33 pg (25-35); MEAN CORPUSCULAR HGB CONC 36 g/dL (31-37); MEAN CORPUSCULAR VOLUME 94 fL (79-100); MONO # 0.6 x10^3/uL (0.0-1.1); MONO % 13 % (0-9); NEUT # 2.6 x10^3uL (1.8-7.7); NEUT % 59 % (31-73); PLATELET COUNT 180 x10^3/uL (140-400); RED BLOOD COUNT 4.94 x10^6/uL (4.30-5.70); RED CELL DISTRIBUTION WIDTH 12.3 % (11.5-14.5); WHITE BLOOD COUNT 4.4 x10^3/uL (4.0-11.0)
--- NOTE | 2021-12-11 04:21 | EKG ---
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
[2021-12-11 04:31] LABS: CALCIUM 8.6 mg/dL (8.5-10.1); CREATININE 1.2 mg/dL (0.7-1.3); GFR 61.8; POTASSIUM 3.5 mmol/L (3.5-5.1)
[2021-12-11 04:42] LABS: ALBUMIN 3.2 g/dL (3.4-5.0); DIRECT BILIRUBIN 0.1 mg/dL (0.0-0.2); MAGNESIUM 2.1 mg/dL (1.8-2.4); TOTAL BILIRUBIN 0.2 mg/dL (0.2-1.0); TOTAL PROTEIN 6.9 g/dL (6.4-8.2)
[2021-12-11 04:44] LABS: INFLUENZA B PATIENT NEGATIVE (NEGATIVE)
[2021-12-11 04:47] LABS: INFLUENZA A PATIENT POSITIVE (NEGATIVE)
[2021-12-11] MEDS: IOHEXOL 350 MG/ML 100 ML VIAL. IV ONE (05:04)
[2021-12-11] MEDS: AZITHROMYCIN 250 MG TABLET. PO ONE (05:05)
[2021-12-11] MEDS ORDERED: AZIT250T PO (05:05)
[2021-12-11 05:20] VITALS: BP 129/82
[2021-12-11 05:22] LABS: BARBITURATES NEG (NEG); BENZODIAZEPINES NEG (NEG); CANNABINOIDS NEG (NEG); COCAINE NEG (NEG); METHADONE NEG (NEG); OPIATES NEG (NEG); PHENCYCLIDINE NEG (NEG)
[2021-12-11 05:23] LABS: AMPHETAMINE/METHAMPHETAMINE NEG (NEG)
[2021-12-11 05:28] LABS: BACTERIA,URINE 0 /HPF (0-FEW); CLARITY,URINE CLEAR; COLOR,URINE YELLOW; GLUCOSE,URINE 500 mg/dL (NEG); NITRITE,URINE NEG (NEG); RBC,URINE 0 /HPF (0-2); UROBILINOGEN,URINE 0.2 mg/dL (0.2 mg/dL); WBC,URINE 0 /HPF (0-4)
--- NOTE | 2021-12-11 05:28 | RAD ---
CT angiography chest with contrast PQRS statement: CT scans at this facility use dose reduction including either automated exposure cont rol, iterative reconstructions, and /or weight based radiation dosing via mA and kV modification when appropriate to reduce radiation dose to as low as reasonably achievable. Contrast: 100 mL of Omnipaque 350 intravenous contrast. 3-D MIP reconstructions of the arteries were marked. HISTORY: Dyspnea. Hypoxia. Covid positive. Influenza positive. FINDINGS: 1 cm left renal upper pole cyst density of -2 units. Small gallstones. There is a prominent bronchial artery arising from the aortic arch. Mild ectasia ascending thoracic aorta diameter 3.7 cm . Heart size normal. Soft tissues are unremarkable. No pulmonary emboli. Increased in number small berumen bcentimeter hilar and mediastinal lymph nodes, with no enlarged adenopathy by size criteria. Upper lo be paraseptal emphysema. There is mild perihilar bronchial wall thickening. 4 mm solid nodule right l ower lobe image 83. At the right suprahilar upper lobe there is a similar linear nodular density alan cent mediastinal pleura measuring 12 mm on coronal image 39 and axial image 53. 3 mm nodule left uppe r lobe apex image 25. No pleural effusions. Bones are unremarkable. IMPRESSION: 1. No pulmonary artery emboli. 2. Bronchial wall thickening may indicate bronchitis. 3. There are a few small solid nodules present, and there is a 12 mm linear nodular density at the ri ght suprahilar upper lobe, which may represent a small focus of atelectasis, an inflammatory or neopl astic nodule is not excluded. Consider follow-up CT chest imaging in 3 months to document that this r esolves over time. Electronically signed by: Randall Venegas MD (12/11/2021 5:25 AM) [facility]
== END 2021-12-11 05:27 | disposition home or self-care (01) ==
LOC: ER 01:59
DX: U07.1 COVID-19 (principal); J10.1 Influenza due to other identified influenza virus with other respiratory manifestations; E11.9 Type 2 diabetes mellitus without complications; M06.9 Rheumatoid arthritis, unspecified; F17.210 Nicotine dependence, cigarettes, uncomplicated; E78.5 Hyperlipidemia, unspecified; E03.9 Hypothyroidism, unspecified; K21.9 Gastro-esophageal reflux disease without esophagitis; Z88.8 Allergy status to other drugs, medicaments and biological substances
CPT/HCPCS: 36415; 71045; 71275; 80048; 80076; 80307; 81001; 82550; 82947; 83690; 83735; 83880; 84443; 84484; 85025; 85379; 85610; 85730; 87428; 93005; 94640; 96361; 96374; 99285; J1815; J7120; Q9967; 99284; 94664